=== PATIENT | male | born 1975 ===

== ENCOUNTER → 2016-11-27 | Day surgery (SDC) | payer OTHER ==
[~2016-11-27] MED LIST: Acetaminophen TAB* 325 MG PO SCH; Buffered Lidocaine 1% SYR 3ML* 3 ML/SYR SYRINGE INTRADERM ONE; Buffered Lidocaine 1% SYR 3ML* 3 ML/SYR SYRINGE ONE; Bupivacaine 0.5% W/EPI SDV* 30 ML VIAL ONE; Dexamethasone IV* 4 MG/ML 1 ML (4 MG) ONE; DiMENhydriNATE IV* 50 MG/ML VIAL IV PUSH PRN; Famotidine IV* 10 MG/ML 2 ML (20 mg) ONE; HYDROcodone/ACETAMIN 5-325 MG* 1 TAB PO PRN; HYDROmorphone INJ* 1 MG/ML CARPUJECT SYRINGE IV PRN; Ketorolac INJ* 30 MG/ML 1 ML VIAL ONE; Lidocaine 1% INJ* 10 MG/ML 30 ML SDV ONE; Lidocaine 2% MPF* 2 ML VIAL ONE; Midazolam* 1 MG/ML 2 ML VIAL (2 MG) ONE; NS 0.9% 1000 ML* 1,000 ML IV SCH; Ondansetron INJ* 2 MG/ML VIAL IV PRN; PROCHLORPERAZINE INJ 5 MG/ML 2 ML VIAL IV PRN; Propofol* 10 MG/ML 20 ML BTL IV PUSH ONE; ceFAZolin 2 GM PREMIX (*) 2 GM/50 ML BAG IVPB ONE; fentaNYL* 50 MCG/ML 2 ML VIAL (100 MCG VIAL) ONE
--- NOTE | 2016-11-27 08:53 | SURGPN ---
Brief Operative Note - Surgery Procedures: OPERATIVE REPORT PRE-OP: Umbilical hernia POST-OP: Same PROCEDURE: Open repair with mesh of umbilical hernia--Bard 4.3 cm SURGEON: MD Susanne ANESTHESIA: General with local--Dr. Arana ASST: none IVF:min EBL:min SPECIMEN: none DRAIN: none WOUND CLASS: One COMPLICATIONS: none TO PACU
[2016-11-27 09:46] VITALS: BP 132/81
--- NOTE | 2016-11-27 18:15 | OP ---
DATE OF OPERATION: 11/27/16 - [facility] DATE OF : 73 SURGEON: Jovanny Skinner MD ANESTHESIOLOGIST: Dr. Arana. ANESTHESIA: General with local. PRE-OP DIAGNOSIS: Umbilical hernia. POST-OP DIAGNOSIS: Umbilical hernia. OPERATIVE PROCEDURE: Open repair with mesh of an umbilical hernia using a 4.3- cm Bard Ventralex dual mesh placed preperitoneally. ESTIMATED BLOOD LOSS: Minimal. SPECIMENS: None. WOUND CLASSIFICATION: I. IV FLUIDS: Minimal. DRAINS: None. COMPLICATIONS: None. DESCRIPTION OF PROCEDURE: Written and informed consent was obtained, the abdomen was marked with indelible ink and preoperative antibiotics were administered. The patient was taken to the operating room and placed in the supine position. ,Sequential compression devices and warming blanket were applied. Anesthesia was administered, and the abdomen was prepped and draped in the usual sterile fashion. A time-out verification was completed. 0.25% Marcaine mixed with 1% lidocaine with epinephrine was infiltrated extensively in the periumbilical area. A semi-circular incision was made below the umbilicus and carried down to the midline fascia just below the umbilicus. The overlying umbilical skin was carefully excised off a portion of what appeared to be preperitoneal fat herniating up through a fascial defect. Once this was complete, I was able to identify the fascial defect, which was about 1.5 cm in diameter containing fat and I developed the preperitoneal space with both sharp and blunt dissection. The peritoneal cavity was not entered. Due to the patient's age, his relatively large size, and the size of the hernia itself, I felt mesh insertion was indicated and thus placed a 4.3-cm circular mesh into the preperitoneal space, which had been developed, which covered the hernia defect nicely and was sutured into position with two separate horizontal mattress sutures using 0 Polysorb suture with the strap both superiorly and inferiorly. Hemostasis was assured. I closed the [place] mesh over the fascia with interrupted 0 Polysorb suture in a transverse orientation. Additional Marcaine was infiltrated. The wound was closed in layers with 3-0 and 4-0 Polysorb suture. Steri-Strips and sterile dressings were applied. The patient tolerated the procedure well, was taken to the recovery room in stable condition. [id number]/[facility] #: [id number] [facility]
== END | disposition home or self-care (01) ==
LOC: OR 05:58
PROVIDERS: ATTEND Surgery
DX: K42.9 Umbilical hernia without obstruction or gangrene (principal)
CPT/HCPCS: C1781; J0690; J1100; J1885; J2250; J2704; J3010